=== PATIENT | female | born 1955 | race Caucasian/White ===

== ENCOUNTER 2017-12-20 07:16 | Emergency (ER) | payer MEDICAID ==
[~2017-12-20] VITALS: Ht 162.6 cm; Wt 77.1 kg
--- NOTE | 2017-12-20 07:25 | NUR ---
PRESENTS TO ER C/O NON TRAUMATIC BACK PAIN X 1 WEEK, WORSE YESTERDAY. A/OX 4, BREATHING EVEN AND UNLABORED. NO SOB, NAD, VITALS STABLE. PATIENT AMBULATORY. SAFETY AND COMFORT MEASURES IN PLACE. AWAITING MD ORDERS.
[2017-12-20] MEDS ORDERED: KETOROLAC TROMETHAMINE INJ 30 MG/ML VIAL ONE (07:53)
[2017-12-20] MEDS ORDERED: HYDROCODONE/APAP 5/325MG 1 EACH TABLET ONE (07:54)
[2017-12-20] MEDS ORDERED: KETOROLAC TROMETHAMINE INJ 60 MG/2 ML VIAL IM ONE (08:00)
[2017-12-20] MEDS ORDERED: HYDROCODONE/APAP 5/325MG 1 EACH TABLET PO ONE (08:00)
--- NOTE | 2017-12-20 08:00 | NUR ---
PATIENT MEDICATED PER MD ORDERS.
[2017-12-20 08:10] VITALS: BP 168/82
--- NOTE | 2017-12-20 08:11 | NUR ---
Patient discharged to home in stable condition. Written and verbal after care instructions given. Patient verbalizes understanding of instruction.
== END 2017-12-20 08:10 | disposition home or self-care (01) ==
LOC: ER 07:18
DX: M54.5 Low back pain (principal); I10 Essential (primary) hypertension; F17.200 Nicotine dependence, unspecified, uncomplicated
CPT/HCPCS: A4606; J1885; Z7610

== ENCOUNTER 2018-08-14 18:32 | Emergency (ER) | END 2018-08-14 20:32 | disposition home or self-care (01) | DX: L03.012 Cellulitis of left finger (principal); I10 Essential (primary) hypertension; F17.200 Nicotine dependence, unspecified, uncomplicated ==

== ENCOUNTER 2018-08-20 10:58 | Emergency (ER) | payer MEDICAID ==
[~2018-08-20] VITALS: Ht 162.6 cm; Wt 83.5 kg
--- NOTE | 2018-08-20 11:28 | NUR ---
LIZ [facility] AT BEDSIDE FOR EVAL.
--- NOTE | 2018-08-20 11:35 | NUR ---
ORTHODONTIST AT BEDSIDE FOR BLOOD DRAW.
[2018-08-20 11:49] LABS: CALCIUM, SERUM 8.7 mg/dL (8.5-10.1); CARBON DIOXIDE 29 mmol/L (21-32); CHLORIDE 104 mmol/L (98-107); CREATININE 0.6 mg/dL (0.6-1.3); GLUCOSE 95 mg/dL (74-106); POTASSIUM 4.3 mmol/L (3.5-5.1); SODIUM SERUM 141 mmol/L (136-145); UREA NITROGEN, BLOOD 20 mg/dL (7-18)
[2018-08-20 11:52] LABS: BASOPHILS # (AUTO) 0.1 /CMM (0.0-0.2); BASOPHILS % (AUTO) 0.7 % (0.0-2.0); EOSINOPHILS % (AUTO) 1.3 % (0.0-6.0); HEMATOCRIT 48 % (33-45); HEMOGLOBIN 15.9 g/dL (11.5-14.8); LYMPHOCYTES # (AUTO) 2.8 /CMM (0.8-4.8); LYMPHOCYTES % (AUTO) 30.2 % (20.0-44.0); MEAN CORPUSCULAR HGB CONC 34 g/dl (31.0-36.0); MEAN CORPUSCULAR VOLUME 89 fL (82-100); MONOCYTES # (AUTO) 0.9 /CMM (0.1-1.30); MONOCYTES % (AUTO) 9.6 % (2.0-12.0); NEUTROPHILS # (AUTO) 5.5 /CMM (1.8-8.9); NEUTROPHILS % (AUTO) 58.2 % (43.0-81.0); PLATELET COUNT (AUTO) 296 /CMM (150-450); RED BLOOD CELL COUNT(AUTO) 5.32 MIL/uL (4.0-5.2); WHITE BLOOD COUNT (AUTO) 9.4 K/uL (4.3-11.0)
--- NOTE | 2018-08-20 11:52 | NUR ---
RADIOLOGY AT BEDSIDE FOR CHEST XRAY.
[2018-08-20 12:06] LABS: APPEARANCE,URINE Clear (CLEAR); BILIRUBIN,URINE Negative (NEGATIVE); BLOOD, URINE Negative Ery/uL (NEGATIVE); COLOR,URINE Yellow (YELLOW); KETONES,URINE Trace (NEGATIVE); LEUKOCYTE ESTERASE ,URINE Negative (NEGATIVE); NITRITE, URINE Negative (NEGATIVE); PH,URINE 5.5 (5.0-8.0); PROTEIN,URINE Negative (NEGATIVE); UGLUCOSE Negative (NEGATIVE); UROBILINOGEN,URINE 0.2 EU/dL (0.2)
[2018-08-20 12:09] LABS: RBC,URINE 0-2 /HPF (0-2); WBC,URINE 0-2 /HPF (0-3)
[2018-08-20 12:10] LABS: BACTERIA,URINE Few /HPF (None Seen); SQUAMOUS EPITHELIAL CELL,UR Few /HPF (None Seen)
--- NOTE | 2018-08-20 12:58 | NUR ---
Patient discharged to home in stable condition. Written and verbal after care instructions given. Patient verbalizes understanding of instruction.
[2018-08-20 12:59] VITALS: BP 125/77
== END 2018-08-20 13:00 | disposition home or self-care (01) ==
LOC: ER 11:04
DX: R07.89 Other chest pain (principal); I10 Essential (primary) hypertension; F17.210 Nicotine dependence, cigarettes, uncomplicated
CPT/HCPCS: 36415; 71045-TC; 80048-TC; 81000-TC; 83880; 84484-TC; 85025-TC; 85730-TC

== ENCOUNTER 2019-06-30 17:26 | Emergency (ER) | payer MEDICAID ==
[~2019-06-30] VITALS: Ht 165.1 cm; Wt 82.6 kg
[2019-06-30 17:32] VITALS: BP 149/81
[2019-06-30] MEDS ORDERED: IBUPROFEN 400 MG TABLET PO ONE (18:00)
[2019-06-30] MEDS ORDERED: IBUPROFEN 400 MG TABLET ONE (18:14)
== END 2019-06-30 18:19 | disposition home or self-care (01) ==
LOC: ER 17:29
DX: S63.592A Other specified sprain of left wrist, initial encounter (principal); F17.200 Nicotine dependence, unspecified, uncomplicated; I10 Essential (primary) hypertension; W18.39XA Other fall on same level, initial encounter; Y93.89 Activity, other specified; Y92.89 Other specified places as the place of occurrence of the external cause; Y99.8 Other external cause status
CPT/HCPCS: 73110

== ENCOUNTER 2020-11-05 19:02 | Emergency (ER) | payer MEDICAID ==
[~2020-11-05] VITALS: Ht 165.1 cm; Wt 77.1 kg
--- NOTE | 2020-11-05 19:40 | NUR ---
THE PATIENT IS BIBS FOR C/O INTERMITTENT FEVER, CHILLS, BODY ACHE AND LLQ ABD PAIN S/P RECEIVING 1ST DOSE OF COVID VACCINE 4 DAYS AGO. REC'D ADVIL 3 HRS LINE PILOT. THE PATIENT IS ALERT AND ORIENTED X4. DENIES SOB. RESPIRATION REGULAR AND UNLABORED. MONITOR ON. WARM BLANKET PROVIDED FOR COMFORT. WILL CONTINUE TO MONITOR.
[2020-11-05 20:41] LABS: BILIRUBIN,URINE SMALL (NEGATIVE); COLOR,URINE DARK YELLOW (YELLOW); LEUKOCYTE ESTERASE ,URINE Moderate (NEGATIVE); NITRITE, URINE Positive (NEGATIVE); PROTEIN,URINE 100 mg/dl (NEGATIVE); UGLUCOSE Negative (NEGATIVE); UROBILINOGEN,URINE 0.2 EU/dL (0.2)
[2020-11-05 20:42] LABS: BACTERIA,URINE Many /HPF (None Seen); RBC,URINE 21-50 /HPF (0-2); SQUAMOUS EPITHELIAL CELL,UR Few /HPF (None Seen); WBC,URINE 21-50 /HPF (0-3)
[2020-11-05] MEDS ORDERED: ACETAMINOPHEN 325 MG TABLET PO ONE (21:00)
[2020-11-05] MEDS ORDERED: ACETAMINOPHEN 325 MG TABLET ONE (21:05)
[2020-11-05] MEDS ORDERED: SULF1TAB48 PO (21:12)
[2020-11-05] MEDS ORDERED: IBUP-1955 PO (21:13)
[2020-11-05] MEDS ORDERED: SULFAMETH/TRIMETH 800/160 MG 1 UDTAB TABLET PO ONE (21:30)
[2020-11-05] MEDS ORDERED: SULFAMETH/TRIMETH 800/160 MG 1 UDTAB TABLET ONE (21:31)
--- NOTE | 2020-11-05 21:33 | NUR ---
The patient is alert and oriented x4. Patient discharged to home in stable condition. Written and verbal after care instructions given. Patient verbalizes understanding of instruction. The patient left ER in stable condition.
[2020-11-05 21:34] VITALS: BP 137/76
[2020-11-06] MEDS ORDERED: CIPR500T5 PO (21:57)
== END 2020-11-05 21:34 | disposition home or self-care (01) ==
LOC: ER 19:05
DX: N30.90 Cystitis, unspecified without hematuria (principal); R50.83 Postvaccination fever; I10 Essential (primary) hypertension; E78.5 Hyperlipidemia, unspecified; F17.200 Nicotine dependence, unspecified, uncomplicated; Z90.89 Acquired absence of other organs; Z98.890 Other specified postprocedural states; Z79.899 Other long term (current) drug therapy
CPT/HCPCS: 81001; 87086-TC; 87186-TC

== ENCOUNTER 2020-11-06 18:41 | Emergency (ER) | payer MEDICAID ==
[~2020-11-06] VITALS: Ht 165.1 cm; Wt 77.1 kg
[~2020-11-06 18:41] MED LIST: IBUP-1955 PO; SULF1TAB48 PO
[2020-11-06] MEDS ORDERED: IV NS 0.9% 1,000 ML BAG IV ONE (20:00)
--- NOTE | 2020-11-06 20:02 | NUR ---
bibs w/ from home to er bed 5. aaox4. not in resp distress. ambulatory. 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 pt was here yesterday and was diagnosed with UTI. Provider at bedside for eval. orders received, ntoed and carried out.
[2020-11-06 20:34] LABS: BASOPHILS % (AUTO) 0.3 % (0.0-2.0); EOSINOPHILS % (AUTO) 0.1 % (0.0-6.0); HEMATOCRIT 44 % (33-45); HEMOGLOBIN 14.8 g/dL (11.5-14.8); LYMPHOCYTES # (AUTO) 1.1 /CMM (0.8-4.8); LYMPHOCYTES % (AUTO) 11.8 % (20.0-44.0); MEAN CORPUSCULAR HGB CONC 34 g/dl (31.0-36.0); MEAN CORPUSCULAR VOLUME 89 fL (82-100); MONOCYTES # (AUTO) 0.8 /CMM (0.1-1.30); MONOCYTES % (AUTO) 8.8 % (2.0-12.0); NEUTROPHILS # (AUTO) 7.5 /CMM (1.8-8.9); PLATELET COUNT (AUTO) 209 /CMM (150-450); RED BLOOD CELL COUNT(AUTO) 4.96 MIL/uL (4.0-5.2); WHITE BLOOD COUNT (AUTO) 9.4 K/uL (4.3-11.0)
[2020-11-06 20:42] LABS: POTASSIUM 3.8 mmol/L (3.5-5.1)
[2020-11-06 20:55] LABS: ALBUMIN 2.9 g/dL (3.4-5.0); BILIRUBIN,DIRECT 0.1 mg/dL (0.0-0.2); BILIRUBIN,TOTAL 0.4 mg/dL (0.2-1.0); TOTAL PROTEIN, SERUM 7.7 g/dL (6.4-8.2)
[2020-11-06 21:01] LABS: BILIRUBIN,URINE NEGATIVE (NEGATIVE); COLOR,URINE AMBER (YELLOW); LEUKOCYTE ESTERASE ,URINE TRACE (NEGATIVE); NITRITE, URINE POSITIVE (NEGATIVE); PH,URINE 6.5 (5.0-8.0); PROTEIN,URINE 100 mg/dl (NEGATIVE); UGLUCOSE NEGATIVE (NEGATIVE)
[2020-11-06 21:15] LABS: BACTERIA,URINE 4+ /HPF (None Seen); RBC,URINE TOO NUMEROUS TO COUN /HPF (0-2); SQUAMOUS EPITHELIAL CELL,UR Few /HPF (None Seen); URINE AMORPHOUS URATE Many /HPF (None Seen); WBC,URINE TOO NUMEROUS TO COUN /HPF (0-3)
[2020-11-06] MEDS ORDERED: CEFTRIAXONE 1 G in IV D5W 50 ML IV ONE (21:30)
[2020-11-06] MEDS ORDERED: CEFTRIAXONE 1GM BAG (ER ONLY) 50 ML IV ONE (21:40)
[2020-11-06] MEDS ORDERED: CIPR500T5 PO (21:57)
--- NOTE | 2020-11-06 22:09 | NUR ---
Patient discharged to home in stable condition. Written and verbal after care instructions given. Patient verbalizes understanding of instruction.IV removed. Catheter intact and site benign. Pressure and 4x4 applied to site. No bleeding noted. Pt ambulatory with a steady gait
[2020-11-06 22:11] VITALS: BP 120/69
== END 2020-11-06 22:11 | disposition home or self-care (01) ==
LOC: ER 18:49
DX: N12 Tubulo-interstitial nephritis, not specified as acute or chronic (principal); I10 Essential (primary) hypertension; F17.200 Nicotine dependence, unspecified, uncomplicated; Z79.899 Other long term (current) drug therapy
CPT/HCPCS: 36415; 74176; 80048; 80076; 81001; 83605; 85025; 85730; 87040 ×2; 87086; 96361; 96365; 99284; J0696; J7030; J7060

== ENCOUNTER 2021-03-19 09:07 | Emergency (ER) | payer MEDICAID ==
[~2021-03-19] VITALS: Ht 165.1 cm; Wt 86.6 kg
[~2021-03-19 09:07] MED LIST changes: +CIPR500T5 PO
--- NOTE | 2021-03-19 09:31 | NUR ---
66 years old female alert, oriented x4 presents to er c/o right rib pain denies nausea, vomiting, chest pain.
[2021-03-19 09:46] LABS: BASOPHILS # (AUTO) 0.1 K/uL (0.0-0.2); BASOPHILS % (AUTO) 0.7 % (0.0-2.0); EOSINOPHILS % (AUTO) 1.2 % (0.0-6.0); HEMATOCRIT 47 % (33-45); HEMOGLOBIN 15.6 g/dL (11.5-14.8); LYMPHOCYTES # (AUTO) 2.9 K/uL (0.8-4.8); LYMPHOCYTES % (AUTO) 28.1 % (20.0-44.0); MEAN CORPUSCULAR HGB CONC 33 g/dl (31.0-36.0); MEAN CORPUSCULAR VOLUME 89 fL (82-100); MONOCYTES # (AUTO) 0.6 K/uL (0.1-1.30); MONOCYTES % (AUTO) 6.1 % (2.0-12.0); NEUTROPHILS # (AUTO) 6.6 K/uL (1.8-8.9); NEUTROPHILS % (AUTO) 63.9 % (43.0-81.0); PLATELET COUNT (AUTO) 262 K/uL (150-450); RED BLOOD CELL COUNT(AUTO) 5.28 MIL/uL (4.0-5.2); WHITE BLOOD COUNT (AUTO) 10.3 K/uL (4.3-11.0)
[2021-03-19 09:53] LABS: CALCIUM, SERUM 8.6 mg/dL (8.5-10.1); CARBON DIOXIDE 25 mmol/L (21-32); CHLORIDE 107 mmol/L (98-107); CREATININE 0.7 mg/dL (0.6-1.3); GLUCOSE 103 mg/dL (74-106); POTASSIUM 4.1 mmol/L (3.5-5.1); SODIUM SERUM 142 mmol/L (136-145); UREA NITROGEN, BLOOD 16 mg/dL (7-18)
[2021-03-19 11:32] VITALS: BP 152/93
[2021-03-19] MEDS ORDERED: IBUP-1955 PO (11:39)
[2021-03-19] MEDS ORDERED: TRAM50TA2 PO (11:39)
--- NOTE | 2021-03-19 11:59 | NUR ---
patient condition improved d/c home with instructions after care reviewed understood, left er alert, oriented x4 prescription given.
== END 2021-03-19 12:03 | disposition home or self-care (01) ==
LOC: ER 09:07
DX: R07.81 Pleurodynia (principal); I10 Essential (primary) hypertension; F17.200 Nicotine dependence, unspecified, uncomplicated; Z79.899 Other long term (current) drug therapy
CPT/HCPCS: 36415; 71100-TC; 80048-TC; 84484-TC; 85025-TC; 85378-TC

== ENCOUNTER 2023-04-15 10:31 | Emergency (ER) | payer MEDICARE, OTHER ==
[~2023-04-15] VITALS: Ht 157.5 cm; Wt 83.5 kg
[~2023-04-15 10:31] MED LIST changes: +TRAM50TA2 PO
[2023-04-15 13:11] VITALS: BP 127/76; TEMP 98; O2SAT 99
== END 2023-04-15 13:12 | disposition home or self-care (01) ==
LOC: ER 10:31
DX: M79.605 Pain in left leg (principal); I10 Essential (primary) hypertension; F17.200 Nicotine dependence, unspecified, uncomplicated; Z79.899 Other long term (current) drug therapy
CPT/HCPCS: 93971-TC

== ENCOUNTER 2023-10-16 04:32 | Inpatient (IN) | payer MEDICARE, OTHER ==
[2023-10-16] VITALS (12 sets, daily range): BP systolic 104–148; BP diastolic 55–85; TEMP 98–98.5; O2SAT 91–99
[~2023-10-16] VITALS: Ht 152.4 cm; Wt 98.0 kg
[2023-10-16] MEDS ORDERED: MIDAZOLAM HCL 2 MG/2ML VIAL ONE (13:16)
[2023-10-16] MEDS ORDERED: FENTANYL PF 250MCG/5ML AMPUL ONE (13:16)
[2023-10-16] MEDS ORDERED: FAMOTIDINE/PF INJ 20 MG/2 ML VIAL IV ONE (13:16)
[2023-10-16] MEDS ORDERED: ANESTHESIA TRAY IN PYXIS 1 EA TRAY MC ONE (13:17)
[2023-10-16] MEDS ORDERED: CELLULOSE,OXIDIZED 1 EA PACK MC ONE (13:20)
[2023-10-16] MEDS ORDERED: LIDOCAINE HCL/MPF 1% 30 ML VIAL IJ ONE (13:20)
[2023-10-16] MEDS ORDERED: CELLULOSE,OXIDIZED 1 EACH EACH MC ONE (13:20)
[2023-10-16] MEDS ORDERED: HEMOSTATIC MATRIX 8 ML 1 EACH PAD MC ONE (13:20)
[2023-10-16] MEDS ORDERED: CELLULOSE,OXIDIZED 1 PKT EACH MC ONE (13:20)
[2023-10-16] MEDS ORDERED: HEPARIN SODIUM, PORCINE 5000 UNITS/1 ML VIAL ONE (14:49)
[2023-10-16] MEDS ORDERED: SEVOFLURANE 250 ML BOTTLE IH ONE (15:24)
[2023-10-16] MEDS ORDERED: POLYMYXIN B SULFATE 500,000 UNITS ONE (15:54)
[2023-10-16] MEDS ORDERED: ROPIVACAINE HCL 0.5% 5 MG/ML 30ML VIAL ONE (15:56)
[2023-10-16] MEDS ORDERED: DOCUSATE SODIUM 100 MG CAPSULE PO PRN (17:30)
[2023-10-16] MEDS ORDERED: MORPHINE SULFATE INJ 2 MG/ML DISP.SYRIN IM PRN (17:30)
[2023-10-16] MEDS ORDERED: CLONIDINE HCL 0.1 MG TABLET PO PRN (17:30)
[2023-10-16 18:05] LABS: CALCIUM, SERUM 8.3 mg/dL (8.5-10.1); CREATININE 0.7 mg/dL (0.6-1.3); POTASSIUM 3.6 mmol/L (3.5-5.1)
[2023-10-16] MEDS ORDERED: CEPH500C2 PO (18:10)
[2023-10-16] MEDS ORDERED: ATOR80TA PO (18:10)
[2023-10-16] MEDS ORDERED: TELM80TA2 PO (18:10)
[2023-10-16] MEDS ORDERED: AMLO5TAB4 PO (18:10)
[2023-10-16] MEDS ORDERED: ASPI-1420 PO (18:10)
[2023-10-16] MEDS ORDERED: LACT1CAP80 PO (18:11)
[2023-10-16] MEDS: IV NS 0.9% 1,000 ML IV PRN (18:13)
[2023-10-16] MEDS: ACETAMINOPHEN 325 MG TABLET PO PRN (18:27)
[2023-10-16] MEDS ORDERED: MAG HYDROX/AL HYDROX/SIMETH 30 ML UDC PO PRN (18:30)
[2023-10-16] MEDS ORDERED: Z GUARD REMEDY 4 OZ OINT TP PRN (18:30)
[2023-10-16] MEDS ORDERED: MAGNESIUM HYDROXIDE 30 ML UDC PO PRN (18:30)
[2023-10-16] MEDS ORDERED: ACETAMINOPHEN 325 MG TABLET PO PRN (18:30)
[2023-10-16] MEDS ORDERED: ONDANSETRON HCL/PF 4 MG/2 ML VIAL IVP PRN (18:30)
[2023-10-16] MEDS: CEFTRIAXONE 1 G in IV D5W 50 ML IV SCH (18:44)
[2023-10-16 18:46] LABS: BASOPHILS # (AUTO) 0.1 K/uL (0.0-0.2); BASOPHILS % (AUTO) 0.4 % (0.0-2.0); EOSINOPHILS % (AUTO) 0.2 % (0.0-6.0); HEMATOCRIT 42 % (33-45); HEMOGLOBIN 14.1 g/dL (11.5-14.8); LYMPHOCYTES # (AUTO) 1.3 K/uL (0.8-4.8); LYMPHOCYTES % (AUTO) 10.9 % (20.0-44.0); MEAN CORPUSCULAR HEMOGLOBIN 30 PG (26.0-33.0); MEAN CORPUSCULAR HGB CONC 33 g/dl (31.0-36.0); MEAN CORPUSCULAR VOLUME 89 fL (82-100); MONOCYTES # (AUTO) 0.2 K/uL (0.1-1.30); NEUTROPHILS # (AUTO) 10.1 K/uL (1.8-8.9); NEUTROPHILS % (AUTO) 86.5 % (43.0-81.0); PLATELET COUNT (AUTO) 225 K/uL (150-450); RED BLOOD CELL COUNT(AUTO) 4.79 MIL/uL (4.0-5.2); RED CELL DISTRIBUTION WIDTH 14.1 % (11.5-15.0); WHITE BLOOD COUNT (AUTO) 11.7 K/uL (4.3-11.0)
[2023-10-16] MEDS: ANCEF 1 GM/50 ML D5W IV SCH (21:16)
[2023-10-17] VITALS (27 sets, daily range): BP systolic 101–146; BP diastolic 55–95; TEMP 97.7–98.5; O2SAT 91–99
[2023-10-17] MEDS: HYDROCODONE/APAP 5/325MG TABLET PO PRN (03:26)
[2023-10-17 04:37] LABS: BASOPHILS % (AUTO) 0.4 % (0.0-2.0); EOSINOPHILS # (AUTO) 0.1 K/uL (0.0-0.7); EOSINOPHILS % (AUTO) 0.7 % (0.0-6.0); HEMATOCRIT 40 % (33-45); HEMOGLOBIN 13.2 g/dL (11.5-14.8); LYMPHOCYTES # (AUTO) 0.7 K/uL (0.8-4.8); LYMPHOCYTES % (AUTO) 6.3 % (20.0-44.0); MEAN CORPUSCULAR HEMOGLOBIN 29 PG (26.0-33.0); MEAN CORPUSCULAR HGB CONC 33 g/dl (31.0-36.0); MEAN CORPUSCULAR VOLUME 88 fL (82-100); MONOCYTES # (AUTO) 0.3 K/uL (0.1-1.30); MONOCYTES % (AUTO) 2.5 % (2.0-12.0); NEUTROPHILS # (AUTO) 10.3 K/uL (1.8-8.9); NEUTROPHILS % (AUTO) 90.1 % (43.0-81.0); PLATELET COUNT (AUTO) 221 K/uL (150-450); RED BLOOD CELL COUNT(AUTO) 4.53 MIL/uL (4.0-5.2); RED CELL DISTRIBUTION WIDTH 14.2 % (11.5-15.0); WHITE BLOOD COUNT (AUTO) 11.4 K/uL (4.3-11.0)
[2023-10-17 04:49] LABS: CALCIUM, SERUM 8.5 mg/dL (8.5-10.1); CREATININE 0.7 mg/dL (0.6-1.3); PHOSPHORUS 3.5 mg/dL (2.5-4.9); POTASSIUM 4.1 mmol/L (3.5-5.1)
[2023-10-17] MEDS: PANTOPRAZOLE 40 MG TABLET.DR PO SCH (07:46)
[2023-10-17] MEDS: ASPIRIN EC 325 MG TABLET.DR PO SCH (09:39)
[2023-10-17] MEDS: ENOXAPARIN SODIUM 40 MG/0.4 ML DISP.SYRIN SQ SCH (18:32)
[2023-10-17] MEDS: ATORVASTATIN 40 MG TABLET PO SCH (22:48)
[2023-10-18] VITALS (7 sets, daily range): BP systolic 121–151; BP diastolic 64–78; TEMP 97.5–97.7; O2SAT 96–97
[2023-10-18] MEDS: ZOLPIDEM TARTRATE 5 MG TABLET PO PRN (00:36)
[2023-10-18 06:52] LABS: BASOPHILS % (AUTO) 0.2 % (0.0-2.0); EOSINOPHILS # (AUTO) 0.1 K/uL (0.0-0.7); EOSINOPHILS % (AUTO) 0.7 % (0.0-6.0); HEMATOCRIT 41 % (33-45); HEMOGLOBIN 13.6 g/dL (11.5-14.8); LYMPHOCYTES # (AUTO) 3.2 K/uL (0.8-4.8); LYMPHOCYTES % (AUTO) 24.5 % (20.0-44.0); MEAN CORPUSCULAR HEMOGLOBIN 30 PG (26.0-33.0); MEAN CORPUSCULAR HGB CONC 33 g/dl (31.0-36.0); MEAN CORPUSCULAR VOLUME 90 fL (82-100); NEUTROPHILS # (AUTO) 8.6 K/uL (1.8-8.9); NEUTROPHILS % (AUTO) 66.6 % (43.0-81.0); PLATELET COUNT (AUTO) 218 K/uL (150-450); RED BLOOD CELL COUNT(AUTO) 4.58 MIL/uL (4.0-5.2); RED CELL DISTRIBUTION WIDTH 14.3 % (11.5-15.0); WHITE BLOOD COUNT (AUTO) 12.9 K/uL (4.3-11.0)
[2023-10-18 07:37] LABS: CALCIUM, SERUM 8.5 mg/dL (8.5-10.1); CREATININE 0.6 mg/dL (0.6-1.3); PHOSPHORUS 3.2 mg/dL (2.5-4.9); POTASSIUM 4.1 mmol/L (3.5-5.1)
[2023-10-18] MEDS ORDERED: ATOR80TA PO (09:48)
[2023-10-18] MEDS ORDERED: HYDR-3972 PO (09:48)
[2023-10-18] MEDS ORDERED: CEPH500C2 PO (09:48)
[2023-10-18] MEDS ORDERED: PANT40TA2 PO (09:48)
[2023-10-18] MEDS: LOSARTAN POTASSIUM 50 MG TABLET PO SCH (09:48)
[2023-10-18] MEDS ORDERED: ASPI-992 PO (09:48)
[2023-10-18] MEDS ORDERED: ZOLP5TAB2 PO (09:48)
[2023-10-18] MEDS ORDERED: AMLO5TAB4 PO (09:48)
[2023-10-18] MEDS ORDERED: TELM80TA2 PO (09:48)
[2023-10-18] MEDS ORDERED: SENN-18 PO (10:26)
[2023-10-18] MEDS ORDERED: POLY17PO4 PO (10:26)
[2023-10-19] MEDS ORDERED: AMLODIPINE BESYLATE 5 MG TABLET PO SCH (09:00)
== END 2023-10-18 11:00 | disposition home health service (06) | DRG 38 ==
LOC: TELE 12:46 → ICU 17:26 → TELE 10-17 17:46
PROVIDERS: ADMIT Nurse Practitioner Acute Care; ATTEND Nurse Practitioner Acute Care
PROC: 03CL0ZZ Extirpation of Matter from Left Internal Carotid Artery, Open Approach (ICD-10-PCS; principal; 2023-10-16)
PROC: 03UL0JZ Supplement Left Internal Carotid Artery with Synthetic Substitute, Open Approach (ICD-10-PCS; 2023-10-16)
DX: I65.22 Occlusion and stenosis of left carotid artery (principal); N39.0 Urinary tract infection, site not specified; Z68.41 Body mass index [BMI] 40.0-44.9, adult; Z86.73 Personal history of transient ischemic attack (TIA), and cerebral infarction without residual deficits; I25.10 Atherosclerotic heart disease of native coronary artery without angina pectoris; I10 Essential (primary) hypertension; E78.5 Hyperlipidemia, unspecified; Z90.49 Acquired absence of other specified parts of digestive tract; Z87.448 Personal history of other diseases of urinary system; G89.29 Other chronic pain; M19.90 Unspecified osteoarthritis, unspecified site; M54.30 Sciatica, unspecified side; E66.9 Obesity, unspecified; Z98.1 Arthrodesis status; Z79.82 Long term (current) use of aspirin; Z79.899 Other long term (current) drug therapy; F17.200 Nicotine dependence, unspecified, uncomplicated; G62.9 Polyneuropathy, unspecified; R47.01 Aphasia; Z82.49 Family history of ischemic heart disease and other diseases of the circulatory system; R47.1 Dysarthria and anarthria; B96.89 Other specified bacterial agents as the cause of diseases classified elsewhere
CPT/HCPCS: 36415; 80048-TC; 80061-TC; 83735-TC; 84100-TC; 85025-TC; 86850-TC; 97112-TC; 97116-TC; 97530-TC; C1751; C1781; G0378; J0690; J0696; J1100; J1644; J1650; J2250; J2405; J2704; J2765; J2795; J3010; J3490; J7030; J7040; J7060